=== PATIENT | male | born 1955 | race Caucasian/White ===

== ENCOUNTER 2019-07-08 14:03 | Observation (INO) ==
[2019-07-08] MEDS ORDERED: 0.9 % Sodium Chloride 250 ML IVC ONE (14:16)
[2019-07-08] MEDS ORDERED: Ziprasidone 20 MG in Water for inj. (sterile) 1 ML IM ONE (14:17)
[2019-07-08 15:45] LABS: Basophils % 0.3 %; Eosinophils # 0.1 K/mcL (0.0-0.6); Eosinophils % 1.2 %; Hematocrit 38.8 % (37.5-50.1); Hemoglobin 13.5 g/dL (12.9-16.9); Immature Granulocytes % 0.6 % (0-4); Lymphocytes % 9.7 %; Mean Corpuscular HGB Conc 34.8 g/dL (31.6-35.5); Mean Corpuscular Hemoglobin 34.8 pg (28.0-33.3); Mean Platelet Volume 9.7 fL (9.4-12.4); Monocytes # 0.8 K/mcL (0.0-1.3); Neutrophils # 7.9 K/mcL (1.6-8.9); Platelet Count 184 K/mcL (140-400); Red Blood Count 3.88 M/mcL (4.19-5.50); Red Cell Distribution Width 12.4 % (11.5-14.5); Segmented Neutrophils % 80.2 %; White Blood Count 9.8 K/mcL (4.3-11.1)
[2019-07-08 16:06] LABS: BUN/Creatinine Ratio 12 (6-26); Blood Urea Nitrogen 7 mg/dL (8-23); Calcium 9.7 mg/dL (8.6-10.3); Carbon Dioxide 22 mEq/L (23-29); Chloride 100 mEq/L (98-107); Glucose 100 mg/dL (70-105); Osmolality,Calculated 266 (280-300); Potassium 3.9 mEq/L (3.5-5.1); Sodium 129 mEq/L (136-145); Troponin I < 0.03 ng/mL (< 0.04); eGFR For African Americans > 60 (> 60); eGFR For Non-African Americans > 60 (> 60)
[2019-07-08] MEDS ORDERED: Naloxone 0.4 MG/ML INJ IVP PRN (16:42)
[2019-07-08] MEDS ORDERED: Ringers Solution, Lactated 1,000 ML IVC SCH (16:45)
[2019-07-08 17:21] LABS: Bilirubin,Urine Negative (Negative); Blood,Urine Negative (Negative); Clarity,Urine Clear (Clear); Color,Urine Yellow (Yellow); Glucose,Urine (UA) Normal (Normal); Ketones,Urine Trace mg/dL (Negative); Leukocyte Esterase,Urine Small (Negative); Nitrite,Urine Negative (Negative); Protein,Urine Trace mg/dL (Neg-Trace); Specific Gravity,Urine 1.017 (1.010-1.025); Urobilinogen,Urine Normal (Normal)
[2019-07-08 17:24] LABS: Bacteria,Urine None Seen per hpf (None-Few); Hyaline Casts,Urine None Seen per lpf (None-Few); Squamous Epithelial Cell,Urine Moderate per lpf (None-Few)
[2019-07-08 17:32] LABS: Albumin 4.3 g/dL (3.5-5.7); Albumin/Globulin Ratio 1.7 (1.1-2.2); Bilirubin,Direct 0.3 mg/dL (0.0-0.2); Bilirubin,Indirect 0.5 mg/dL (0.0-1.0); Bilirubin,Total 0.8 mg/dL (0.3-1.0); Globulin 2.5 g/dL (2.4-3.5); Total Protein 6.8 g/dL (6.4-8.9)
[2019-07-08 17:36] LABS: Amphetamine Screen,Urine Negative ng/mL (Cutoff=1000); Barbiturate Screen,Urine Negative ng/mL (Cutoff=200); Benzodiazepines Screen,Urine Negative ng/mL (Cutoff=200); Cannabinoid Screen,Urine Positive ng/mL (Cutoff = 50); Cocaine Screen,Urine Negative ng/mL (Cutoff= 300); Opiate Screen,Urine Negative ng/mL (Cutoff=300); Phencyclidine Screen,Urine Negative ng/mL (Cutoff=25)
[2019-07-08 17:44] LABS: Thyroid Stimulating Hormone 1.411 mcIU/mL (0.340-5.600)
[2019-07-08 17:55] LABS: Folate 11.7 ng/mL (3.0-16.0)
[2019-07-08] MEDS ORDERED: *HR* HYDROcodone/Acet 5/325 mg TABLET PO PRN (21:34)
[2019-07-08] MEDS ORDERED: Morphine Sulfate 2 MG/ML SYRINGE IVP PRN (21:35)
[2019-07-09] MEDS ORDERED: *HR* LORazepam 2 MG/ML VIAL IVP PRN ×3 (07:17)
[2019-07-09 07:21] LABS: BUN/Creatinine Ratio 8 (6-26); Blood Urea Nitrogen 5 mg/dL (8-23); Carbon Dioxide 27 mEq/L (23-29); Chloride 103 mEq/L (98-107); Glucose 96 mg/dL (70-105); Osmolality,Calculated 279 (280-300); Potassium 4.3 mEq/L (3.5-5.1); Sodium 136 mEq/L (136-145); eGFR For African Americans > 60 (> 60); eGFR For Non-African Americans > 60 (> 60)
[2019-07-09] MEDS: 0.9 % Sodium Chloride 1,000 ML IVC SCH ×2 (08:07→23:52)
[2019-07-09] MEDS ORDERED: Cyanocobalamin (B-12) 1,000 MCG/ML VIAL IM ONE (09:55)
[2019-07-09] MEDS: Thiamine (B-1) 100 MG TABLET PO SCH (11:22)
[2019-07-09] MEDS ORDERED: Ibuprofen 800 MG TABLET PO PRN (13:08)
[2019-07-09] MEDS ORDERED: Acetaminophen IV 1,000 MG/100 ML INFUS..BTL IVPB PRN (20:05)
[2019-07-09] MEDS ORDERED: Methocarbamol 500 MG TABLET PO PRN (20:06)
[2019-07-10] MEDS ORDERED: Ibuprofen 800 MG TABLET PO PRN (07:06)
[2019-07-10] MEDS ORDERED: Folic Acid 1 MG TABLET PO SCH (09:00)
[2019-07-10] MEDS ORDERED: Cyanocobalamin (B-12) 1,000 MCG TABLET PO SCH (09:00)
[2019-07-10] MEDS: Thiamine (B-1) 100 MG TABLET PO SCH (09:37)
[2019-07-10 12:04] VITALS: BP 168/83
== END 2019-07-10 12:09 | disposition home or self-care (01) ==
LOC: 2ANU 14:03 → EMEROOARM 14:03 → SUATTDRO 19:02 → 2ANU 19:44
PROVIDERS: ADMIT Internal Medicine; ATTEND Internal Medicine

== ENCOUNTER 2020-11-24 16:52 | Inpatient (IN) ==
[2020-11-24] MEDS ORDERED: *HR* LORazepam 2 MG/ML VIAL ONE (16:57)
[2020-11-24] MEDS ORDERED: Haloperidol Lactate 5 MG/ML VIAL IVP ONE (17:02)
[2020-11-24] MEDS ORDERED: *HR* LORazepam 2 MG/ML VIAL IVP ONE ×2 (17:02→18:57)
[2020-11-24 18:21] LABS: Basophils % 0.2 %; Eosinophils # 0.1 K/mcL (0.0-0.6); Eosinophils % 0.5 %; Hematocrit 32.6 % (37.5-50.1); Hemoglobin 11.2 g/dL (12.9-16.9); Immature Granulocytes % 0.7 % (0-4); Lymphocytes # 0.8 K/mcL (0.6-4.6); Lymphocytes % 8.4 %; Mean Corpuscular HGB Conc 34.4 g/dL (31.6-35.5); Mean Corpuscular Hemoglobin 33.5 pg (28.0-33.3); Mean Corpuscular Volume 97.6 fL (83.0-100.0); Mean Platelet Volume 9.2 fL (9.4-12.4); Monocytes # 0.7 K/mcL (0.0-1.3); Neutrophils # 7.9 K/mcL (1.6-8.9); Platelet Count 244 K/mcL (140-400); Red Blood Count 3.34 M/mcL (4.19-5.50); Red Cell Distribution Width 12.6 % (11.5-14.5); Segmented Neutrophils % 83.2 %; White Blood Count 9.5 K/mcL (4.3-11.1)
[2020-11-24 18:43] LABS: Alanine Aminotransferase 18 Units/L (7-52); Albumin 3.8 g/dL (3.5-5.7); Albumin/Globulin Ratio 1.4 (1.1-2.2); Alkaline Phosphatase 73 Units/L (34-104); Aspartate Amino Transferase 27 Units/L (13-39); BUN/Creatinine Ratio 10 (6-26); Bilirubin,Direct 0.2 mg/dL (0.0-0.2); Bilirubin,Indirect 0.5 mg/dL (0.0-1.0); Bilirubin,Total 0.7 mg/dL (0.3-1.0); Blood Urea Nitrogen 7 mg/dL (8-23); Calcium 9.6 mg/dL (8.6-10.3); Carbon Dioxide 22 mEq/L (23-29); Chloride 96 mEq/L (98-107); Ethanol < 10 mg/dL (Less than 10); Globulin 2.7 g/dL (2.4-3.5); Glucose 99 mg/dL (70-105); Lipase 9 Units/L (11-82); Magnesium 1.5 mg/dL (1.6-2.6); Osmolality,Calculated 262 (280-300); Phosphorous 2.1 mg/dL (2.7-4.5); Potassium 4.6 mEq/L (3.5-5.1); Sodium 127 mEq/L (136-145); Total Protein 6.5 g/dL (6.4-8.9); Troponin I < 0.03 ng/mL (< 0.04); eGFR For African Americans > 60 (> 60); eGFR For Non-African Americans > 60 (> 60)
[2020-11-24 19:09] LABS: Amphetamine Screen,Urine Negative ng/mL (Cutoff=1000); Barbiturate Screen,Urine Negative ng/mL (Cutoff=200); Benzodiazepines Screen,Urine Negative ng/mL (Cutoff=200); Cannabinoid Screen,Urine Negative ng/mL (Cutoff = 50); Cocaine Screen,Urine Negative ng/mL (Cutoff= 300); Opiate Screen,Urine Negative ng/mL (Cutoff=300); Phencyclidine Screen,Urine Negative ng/mL (Cutoff=25)
[2020-11-24 19:20] LABS: Acetaminophen < 10 mcg/mL (10-20); Salicylate < 2.5 mg/dL (15.0-30.0)
[2020-11-24] MEDS: 0.9 % Sodium Chloride 1,000 ML IVC SCH ×2 (19:20→20:14)
[2020-11-24 20:46] LABS: Bilirubin,Urine Negative (Negative); Blood,Urine Negative (Negative); Clarity,Urine Clear (Clear); Color,Urine Light-Yellow (Yellow); Glucose,Urine (UA) Normal (Normal); Ketones,Urine Negative (Negative); Leukocyte Esterase,Urine Negative (Negative); Nitrite,Urine Negative (Negative); Protein,Urine Negative (Neg-Trace); Specific Gravity,Urine 1.014 (1.010-1.025); Urobilinogen,Urine Normal (Normal)
[2020-11-24] MEDS ORDERED: *HR* Promethazine 25 MG/ML VIAL IM PRN (21:06)
[2020-11-24] MEDS ORDERED: *HR* OxyCODONE Immed Rel 5 MG TABLET PO PRN (21:06)
[2020-11-24] MEDS ORDERED: *HR* HYDROcodone/Acet 5/325 mg TABLET PO PRN (21:06)
[2020-11-24] MEDS ORDERED: Ondansetron 4 MG/2 ML VIAL IVP PRN (21:06)
[2020-11-24] MEDS ORDERED: Naloxone 0.4 MG/ML INJ IVP PRN (21:06)
[2020-11-24] MEDS ORDERED: *HR* LORazepam 2 MG/ML VIAL IVP PRN (21:15)
[2020-11-24] MEDS: Ringers Solution, Lactated 1,000 ML IVC SCH (21:27)
[2020-11-24] MEDS: *HR* LORazepam 2 MG/ML VIAL IVP PRN ×2 (21:33→23:20)
[2020-11-25] MEDS: *HR* LORazepam 2 MG/ML VIAL IVP PRN ×8 (01:30→23:38)
[2020-11-25] MEDS: Ringers Solution, Lactated 1,000 ML IVC SCH (04:31)
[2020-11-25 06:01] LABS: Basophils % 0.3 %; Eosinophils % 0.3 %; Hematocrit 32.5 % (37.5-50.1); Hemoglobin 11.3 g/dL (12.9-16.9); Immature Granulocytes % 0.4 % (0-4); Lymphocytes # 0.8 K/mcL (0.6-4.6); Lymphocytes % 11.4 %; Mean Corpuscular HGB Conc 34.8 g/dL (31.6-35.5); Mean Corpuscular Hemoglobin 33.8 pg (28.0-33.3); Mean Corpuscular Volume 97.3 fL (83.0-100.0); Mean Platelet Volume 9.8 fL (9.4-12.4); Monocytes # 0.7 K/mcL (0.0-1.3); Monocytes % 9.2 %; Neutrophils # 5.7 K/mcL (1.6-8.9); Platelet Count 235 K/mcL (140-400); Red Blood Count 3.34 M/mcL (4.19-5.50); Red Cell Distribution Width 12.4 % (11.5-14.5); Segmented Neutrophils % 78.4 %; White Blood Count 7.3 K/mcL (4.3-11.1)
[2020-11-25 06:05] LABS: Prothrombin Time 11.3 Seconds (9.4-12.1)
[2020-11-25 06:28] LABS: Alanine Aminotransferase 18 Units/L (7-52); Albumin 3.6 g/dL (3.5-5.7); Albumin/Globulin Ratio 1.4 (1.1-2.2); Alkaline Phosphatase 71 Units/L (34-104); Aspartate Amino Transferase 33 Units/L (13-39); BUN/Creatinine Ratio 10 (6-26); Blood Urea Nitrogen 5 mg/dL (8-23); Calcium 9.1 mg/dL (8.6-10.3); Carbon Dioxide 25 mEq/L (23-29); Chloride 104 mEq/L (98-107); Globulin 2.5 g/dL (2.4-3.5); Glucose 106 mg/dL (70-105); Magnesium 1.7 mg/dL (1.6-2.6); Osmolality,Calculated 278 (280-300); Phosphorous 2.9 mg/dL (2.7-4.5); Potassium 3.7 mEq/L (3.5-5.1); Sodium 135 mEq/L (136-145); Total Protein 6.1 g/dL (6.4-8.9); eGFR For African Americans > 60 (> 60); eGFR For Non-African Americans > 60 (> 60)
[2020-11-25] MEDS ORDERED: Morphine Sulfate 2 MG/ML SYRINGE IVP ONE (09:35)
[2020-11-25] MEDS: Thiamine (B-1) 100 MG, Folic Acid 1 MG, MVI, adult with vitamin K 10 ML in 0.9 % Sodi... IVPB SCH ×2 (09:46→18:15)
[2020-11-25] MEDS: lisinopriL 5 MG TABLET PO SCH (17:12)
[2020-11-26] MEDS: *HR* LORazepam 2 MG/ML VIAL IVP PRN (03:01)
[2020-11-26] MEDS: levETIRAcetam 250 MG TABLET PO SCH ×2 (04:53→17:14)
[2020-11-26] MEDS: lisinopriL 5 MG TABLET PO SCH (09:17)
[2020-11-26 10:20] LABS: Basophils % 0.3 %; Eosinophils # 0.1 K/mcL (0.0-0.6); Eosinophils % 1.1 %; Hematocrit 34.3 % (37.5-50.1); Hemoglobin 11.9 g/dL (12.9-16.9); Immature Granulocytes % 0.5 % (0-4); Lymphocytes # 1.4 K/mcL (0.6-4.6); Lymphocytes % 14.7 %; Mean Corpuscular HGB Conc 34.7 g/dL (31.6-35.5); Mean Platelet Volume 9.5 fL (9.4-12.4); Monocytes % 11.2 %; Neutrophils # 6.7 K/mcL (1.6-8.9); Platelet Count 216 K/mcL (140-400); Red Cell Distribution Width 12.6 % (11.5-14.5); Segmented Neutrophils % 72.2 %; White Blood Count 9.3 K/mcL (4.3-11.1)
[2020-11-26 10:51] LABS: Alanine Aminotransferase 15 Units/L (7-52); Albumin 3.5 g/dL (3.5-5.7); Albumin/Globulin Ratio 1.3 (1.1-2.2); Alkaline Phosphatase 71 Units/L (34-104); Aspartate Amino Transferase 26 Units/L (13-39); Bilirubin,Total 1.1 mg/dL (0.3-1.0); Blood Urea Nitrogen 5 mg/dL (8-23); Calcium 9.1 mg/dL (8.6-10.3); Carbon Dioxide 25 mEq/L (23-29); Chloride 101 mEq/L (98-107); Globulin 2.7 g/dL (2.4-3.5); Glucose 104 mg/dL (70-105); Osmolality,Calculated 270 (280-300); Potassium 3.5 mEq/L (3.5-5.1); Sodium 131 mEq/L (136-145); Total Protein 6.2 g/dL (6.4-8.9)
[2020-11-26 11:52] LABS: BUN/Creatinine Ratio 11 (6-26); eGFR For African Americans > 60 (> 60); eGFR For Non-African Americans > 60 (> 60)
[2020-11-26] MEDS: Thiamine (B-1) 100 MG TABLET PO SCH (17:14)
[2020-11-26] MEDS: Multivit/Ca/Min/Fe/FA 1 TAB TABLET PO SCH (17:14)
[2020-11-26] MEDS: Folic Acid 1 MG TABLET PO SCH (17:14)
[2020-11-27] MEDS: levETIRAcetam 250 MG TABLET PO SCH ×2 (05:20→17:43)
[2020-11-27 07:16] LABS: Basophils % 0.2 %; Eosinophils # 0.1 K/mcL (0.0-0.6); Eosinophils % 0.5 %; Hematocrit 33.5 % (37.5-50.1); Hemoglobin 11.4 g/dL (12.9-16.9); Immature Granulocytes % 0.5 % (0-4); Lymphocytes # 1.1 K/mcL (0.6-4.6); Lymphocytes % 10.8 %; Mean Corpuscular Hemoglobin 33.5 pg (28.0-33.3); Mean Corpuscular Volume 98.5 fL (83.0-100.0); Monocytes # 1.2 K/mcL (0.0-1.3); Monocytes % 11.9 %; Neutrophils # 7.7 K/mcL (1.6-8.9); Platelet Count 220 K/mcL (140-400); Red Cell Distribution Width 12.3 % (11.5-14.5); Segmented Neutrophils % 76.1 %; White Blood Count 10.1 K/mcL (4.3-11.1)
[2020-11-27 07:38] LABS: BUN/Creatinine Ratio 17 (6-26); Blood Urea Nitrogen 8 mg/dL (8-23); Calcium 10.1 mg/dL (8.6-10.3); Carbon Dioxide 25 mEq/L (23-29); Chloride 101 mEq/L (98-107); Glucose 115 mg/dL (70-105); Osmolality,Calculated 275 (280-300); Potassium 3.7 mEq/L (3.5-5.1); Sodium 133 mEq/L (136-145); eGFR For African Americans > 60 (> 60); eGFR For Non-African Americans > 60 (> 60)
[2020-11-27] MEDS: lisinopriL 5 MG TABLET PO SCH (08:39)
[2020-11-27] MEDS: Thiamine (B-1) 100 MG TABLET PO SCH (08:40)
[2020-11-27] MEDS: Folic Acid 1 MG TABLET PO SCH (08:40)
[2020-11-27] MEDS: Multivit/Ca/Min/Fe/FA 1 TAB TABLET PO SCH (08:40)
[2020-11-28] MEDS: Acetaminophen 325 MG TABLET PO PRN (03:55)
[2020-11-28] MEDS: levETIRAcetam 250 MG TABLET PO SCH ×2 (05:55→18:17)
[2020-11-28 06:36] LABS: Basophils % 0.3 %; Eosinophils # 0.1 K/mcL (0.0-0.6); Eosinophils % 1.8 %; Hematocrit 28.7 % (37.5-50.1); Immature Granulocytes % 0.4 % (0-4); Lymphocytes # 1.4 K/mcL (0.6-4.6); Lymphocytes % 17.7 %; Mean Corpuscular HGB Conc 34.8 g/dL (31.6-35.5); Mean Corpuscular Hemoglobin 34.2 pg (28.0-33.3); Mean Corpuscular Volume 98.3 fL (83.0-100.0); Mean Platelet Volume 10.1 fL (9.4-12.4); Monocytes # 1.1 K/mcL (0.0-1.3); Monocytes % 13.7 %; Platelet Count 218 K/mcL (140-400); Red Blood Count 2.92 M/mcL (4.19-5.50); Red Cell Distribution Width 11.9 % (11.5-14.5); Segmented Neutrophils % 66.1 %; White Blood Count 7.9 K/mcL (4.3-11.1)
[2020-11-28 06:42] LABS: Neutrophils # 5.2 K/mcL (1.6-8.9)
[2020-11-28 07:00] LABS: BUN/Creatinine Ratio 20 (6-26); Blood Urea Nitrogen 10 mg/dL (8-23); Calcium 9.7 mg/dL (8.6-10.3); Carbon Dioxide 26 mEq/L (23-29); Chloride 102 mEq/L (98-107); Glucose 108 mg/dL (70-105); Osmolality,Calculated 274 (280-300); Potassium 3.7 mEq/L (3.5-5.1); Sodium 132 mEq/L (136-145); eGFR For African Americans > 60 (> 60); eGFR For Non-African Americans > 60 (> 60)
[2020-11-28 07:11] LABS: Hypochromasia Present (Not Present); Platelet Estimate Normal (Normal); Reactive Lymphocytes Present (Not Present)
[2020-11-28] MEDS: Multivit/Ca/Min/Fe/FA 1 TAB TABLET PO SCH (09:28)
[2020-11-28] MEDS: Thiamine (B-1) 100 MG TABLET PO SCH (09:28)
[2020-11-28] MEDS: lisinopriL 5 MG TABLET PO SCH (09:28)
[2020-11-28] MEDS: Folic Acid 1 MG TABLET PO SCH (09:29)
[2020-11-29] MEDS: levETIRAcetam 250 MG TABLET PO SCH ×2 (10:59→18:23)
[2020-11-29] MEDS: Thiamine (B-1) 100 MG TABLET PO SCH (11:04)
[2020-11-29] MEDS: Multivit/Ca/Min/Fe/FA 1 TAB TABLET PO SCH (11:04)
[2020-11-29] MEDS: lisinopriL 5 MG TABLET PO SCH (11:04)
[2020-11-29] MEDS: Folic Acid 1 MG TABLET PO SCH (11:05)
[2020-11-29] MEDS: Melatonin 3 MG TABLET PO PRN (22:05)
[2020-11-29] MEDS: Acetaminophen 325 MG TABLET PO PRN (22:05)
[2020-11-30] MEDS: levETIRAcetam 250 MG TABLET PO SCH ×2 (05:01→17:02)
[2020-11-30] MEDS: Multivit/Ca/Min/Fe/FA 1 TAB TABLET PO SCH (08:24)
[2020-11-30] MEDS: Folic Acid 1 MG TABLET PO SCH (08:25)
[2020-11-30] MEDS: lisinopriL 5 MG TABLET PO SCH (08:25)
[2020-11-30] MEDS: Thiamine (B-1) 100 MG TABLET PO SCH (08:25)
[2020-11-30] MEDS: Melatonin 3 MG TABLET PO PRN (20:53)
[2020-11-30] MEDS: Acetaminophen 325 MG TABLET PO PRN (20:54)
[2020-12-01 04:52] LABS: Basophils % 0.3 %; Eosinophils # 0.3 K/mcL (0.0-0.6); Eosinophils % 3.2 %; Hematocrit 28.2 % (37.5-50.1); Hemoglobin 9.3 g/dL (12.9-16.9); Immature Granulocytes % 0.4 % (0-4); Lymphocytes # 1.9 K/mcL (0.6-4.6); Lymphocytes % 19.1 %; Mean Corpuscular Hemoglobin 33.2 pg (28.0-33.3); Mean Corpuscular Volume 100.7 fL (83.0-100.0); Mean Platelet Volume 9.9 fL (9.4-12.4); Monocytes # 1.1 K/mcL (0.0-1.3); Monocytes % 10.5 %; Platelet Count 307 K/mcL (140-400); Red Cell Distribution Width 11.6 % (11.5-14.5); Segmented Neutrophils % 66.5 %
[2020-12-01] MEDS: levETIRAcetam 250 MG TABLET PO SCH ×2 (05:05→17:32)
[2020-12-01 05:10] LABS: Neutrophils # 6.7 K/mcL (1.6-8.9)
[2020-12-01 05:12] LABS: BUN/Creatinine Ratio 21 (6-26); Blood Urea Nitrogen 12 mg/dL (8-23); Carbon Dioxide 30 mEq/L (23-29); Chloride 101 mEq/L (98-107); Glucose 103 mg/dL (70-105); Osmolality,Calculated 278 (280-300); Potassium 3.3 mEq/L (3.5-5.1); Sodium 134 mEq/L (136-145); eGFR For African Americans > 60 (> 60); eGFR For Non-African Americans > 60 (> 60)
[2020-12-01 05:38] LABS: Platelet Estimate Normal (Normal)
[2020-12-01] MEDS ORDERED: *HR* Metoprolol 5 MG/5 ML VIAL IVP ONE (08:47)
[2020-12-01] MEDS: Multivit/Ca/Min/Fe/FA 1 TAB TABLET PO SCH (09:07)
[2020-12-01] MEDS: lisinopriL 5 MG TABLET PO SCH (09:08)
[2020-12-01] MEDS: Thiamine (B-1) 100 MG TABLET PO SCH (09:08)
[2020-12-01] MEDS: Folic Acid 1 MG TABLET PO SCH (09:08)
[2020-12-01 19:01] LABS: Adenovirus Not Detected (Not Detect); Bordetella Pertussis Not Detected (Not Detect); Chlamydophila pneumoniae Not Detected (Not Detect); Coronavirus 229E Not Detected (Not Detect); Coronavirus HKU1 Not Detected (Not Detect); Coronavirus NL63 Not Detected (Not Detect); Coronavirus OC43 Not Detected (Not Detect); Human Metapneumovirus Not Detected (Not Detect); Human Rhinovirus/Enterovirus Not Detected (Not Detect); Influenza A Subtype 2009 H1 Not Detected (Not Detect); Influenza B Not Detected (Not Detect); Mycoplasma pneumoniae Not Detected (Not Detect); Parainfluenza Virus 1 Not Detected (Not Detect); Parainfluenza Virus 2 Not Detected (Not Detect); Parainfluenza Virus 3 Not Detected (Not Detect); Parainfluenza Virus 4 Not Detected (Not Detect); Respiratory Syncytial Virus Not Detected (Not Detect); SARS-CoV-2 Not Detected (Not Detect)
[2020-12-01 19:24] VITALS: BP 140/89
== END 2020-12-01 21:09 | DRG 896 ==
LOC: EMEROOARM 16:52 → 2NNU 16:52 → SUATTDRO 20:36 → 2NNU 21:10 → 2ANU 11-28 09:06
PROVIDERS: ADMIT Family Medicine; ATTEND Family Medicine

== ENCOUNTER 2021-04-26 16:00 | Inpatient (IN) ==
[2021-04-26] MEDS ORDERED: *HR* LORazepam 2 MG/ML VIAL IVP ONE (17:33)
[2021-04-26 17:58] LABS: VBG HCO3 31 mEq/L (21-27); VBG PCO2 51 mmHg (41-51); VBG PH 7.39 pH Units (7.32-7.42); VBG PO2 45 mmHg (25-50)
[2021-04-26 17:58] LABS: Basophils % 0.4 %; Eosinophils # 0.2 K/mcL (0.0-0.6); Eosinophils % 2.1 %; Hematocrit 37.3 % (37.5-50.1); Hemoglobin 12.6 g/dL (12.9-16.9); Immature Granulocytes % 0.3 % (0-4); Lymphocytes # 1.6 K/mcL (0.6-4.6); Lymphocytes % 21.5 %; Mean Corpuscular HGB Conc 33.8 g/dL (31.6-35.5); Mean Corpuscular Hemoglobin 33.1 pg (28.0-33.3); Mean Corpuscular Volume 97.9 fL (83.0-100.0); Mean Platelet Volume 10.8 fL (9.4-12.4); Monocytes # 0.7 K/mcL (0.0-1.3); Platelet Count 153 K/mcL (140-400); Red Blood Count 3.81 M/mcL (4.19-5.50); Red Cell Distribution Width 13.9 % (11.5-14.5); Segmented Neutrophils % 66.7 %; White Blood Count 7.5 K/mcL (4.3-11.1)
[2021-04-26 18:02] LABS: Prothrombin Time 10.8 Seconds (9.4-12.1)
[2021-04-26 18:10] LABS: Bilirubin,Urine Negative (Negative); Blood,Urine Negative (Negative); Clarity,Urine Clear (Clear); Color,Urine Yellow (Yellow); Glucose,Urine (UA) Normal (Normal); Ketones,Urine Negative (Negative); Leukocyte Esterase,Urine Negative (Negative); Nitrite,Urine Negative (Negative); Protein,Urine Negative (Neg-Trace); Specific Gravity,Urine 1.007 (1.010-1.025); Urobilinogen,Urine Normal (Normal)
[2021-04-26 18:44] LABS: Alanine Aminotransferase 10 Units/L (7-52); Albumin 3.9 g/dL (3.5-5.7); Albumin/Globulin Ratio 1.3 (1.1-2.2); Alkaline Phosphatase 67 Units/L (34-104); Aspartate Amino Transferase 26 Units/L (13-39); BUN/Creatinine Ratio 13 (6-26); Bilirubin,Direct 0.2 mg/dL (0.0-0.2); Bilirubin,Indirect 0.8 mg/dL (0.0-1.0); Blood Urea Nitrogen 10 mg/dL (8-23); Carbon Dioxide 32 mEq/L (23-29); Chloride 97 mEq/L (98-107); Globulin 2.9 g/dL (2.4-3.5); Glucose 104 mg/dL (70-105); Magnesium 1.6 mg/dL (1.6-2.6); Osmolality,Calculated 279 (280-300); Phosphorous 1.7 mg/dL (2.7-4.5); Potassium 3.1 mEq/L (3.5-5.1); Sodium 135 mEq/L (136-145); Thyroid Stimulating Hormone 0.835 mcIU/mL (0.340-5.600); Total Protein 6.8 g/dL (6.4-8.9); eGFR For African Americans > 60 (> 60); eGFR For Non-African Americans > 60 (> 60)
[2021-04-26 18:47] LABS: Calcium 15.3 mg/dL (8.6-10.3)
[2021-04-26 18:48] LABS: Troponin I 0.04 ng/mL (< 0.04)
[2021-04-26] MEDS ORDERED: 0.9 % Sodium Chloride 1,000 ML IVC ONE (18:52)
[2021-04-26] MEDS ORDERED: Calcitonin-Salmon, Synthetic 400 UNIT/2 ML VIAL SQ ONE (18:52)
[2021-04-26] MEDS ORDERED: SODIUM CHLORIDE 0.9% IVPB ONE (19:02)
[2021-04-26] MEDS ORDERED: POTASSIUM PHOSPHATE IVPB ONE (19:02)
[2021-04-26] MEDS ORDERED: Ringers Solution, Lactated 1,000 ML IVC ONE (19:15)
[2021-04-26 19:27] LABS: Influenza A PCR Negative (Negative); Influenza B PCR Negative (Negative); Resp. Syncytial Virus PCR Negative (Negative); SARS-CoV-2 by PCR (In House) Negative (Negative)
[2021-04-26] MEDS ORDERED: Potassium Phosphate 44 MEQ in 0.9 % Sodium Chloride 250 ML IVPB ONE (20:00)
[2021-04-26 20:24] LABS: VBG Ionized Calcium 1.92 mmol/L (1.15-1.35)
[2021-04-26] MEDS ORDERED: *HR* LORazepam 2 MG/ML VIAL IVP PRN ×2 (21:48)
[2021-04-26] MEDS ORDERED: Naloxone 0.4 MG/ML INJ IVP PRN (21:52)
[2021-04-26] MEDS: *HR* LORazepam 2 MG/ML VIAL IVP PRN (22:15)
[2021-04-26] MEDS: niCARdipine 20 MG/200 ML MLS IVC SCH (23:11)
[2021-04-27] MEDS ORDERED: 0.9 % Sodium Chloride 1,000 ML IVC SCH ×2 (00:30→11:00)
[2021-04-27 00:31] LABS: Hematocrit 38.4 % (37.5-50.1); Hemoglobin 13.1 g/dL (12.9-16.9); Mean Corpuscular HGB Conc 34.1 g/dL (31.6-35.5); Mean Corpuscular Hemoglobin 33.2 pg (28.0-33.3); Mean Corpuscular Volume 97.2 fL (83.0-100.0); Mean Platelet Volume 10.6 fL (9.4-12.4); Platelet Count 152 K/mcL (140-400); Red Blood Count 3.95 M/mcL (4.19-5.50); Red Cell Distribution Width 13.6 % (11.5-14.5); White Blood Count 9.8 K/mcL (4.3-11.1)
[2021-04-27 00:33] LABS: VBG Ionized Calcium 1.69 mmol/L (1.15-1.35)
[2021-04-27 00:55] LABS: BUN/Creatinine Ratio 11 (6-26); Blood Urea Nitrogen 8 mg/dL (8-23); Calcium 13.4 mg/dL (8.6-10.3); Carbon Dioxide 27 mEq/L (23-29); Chloride 102 mEq/L (98-107); Glucose 116 mg/dL (70-105); Osmolality,Calculated 285 (280-300); Potassium 3.1 mEq/L (3.5-5.1); Sodium 138 mEq/L (136-145); eGFR For African Americans > 60 (> 60); eGFR For Non-African Americans > 60 (> 60)
[2021-04-27] MEDS ORDERED: Calcitonin-Salmon, Synthetic 400 UNIT/2 ML VIAL SQ ONE ×2 (01:00→14:00)
[2021-04-27] MEDS ORDERED: Zoledronic Acid (Zometa) 4 MG in 0.9 % Sodium Chloride 100 ML IV ONE (01:30)
[2021-04-27] MEDS: niCARdipine 20 MG/200 ML MLS IVC SCH ×5 (02:39→21:42)
[2021-04-27] MEDS: levETIRAcetam 250 MG in 0.9 % Sodium Chloride 100 ML IVPB SCH ×2 (02:39→17:45)
[2021-04-27] MEDS ORDERED: Potassium Phosphate 44 MEQ in 0.9 % Sodium Chloride 250 ML IVPB ONE ×2 (04:00→10:08)
[2021-04-27 05:03] LABS: BUN/Creatinine Ratio 10 (6-26); Blood Urea Nitrogen 8 mg/dL (8-23); Calcium 12.7 mg/dL (8.6-10.3); Carbon Dioxide 29 mEq/L (23-29); Chloride 104 mEq/L (98-107); Glucose 118 mg/dL (70-105); Osmolality,Calculated 287 (280-300); Potassium 3.1 mEq/L (3.5-5.1); Sodium 139 mEq/L (136-145); eGFR For African Americans > 60 (> 60); eGFR For Non-African Americans > 60 (> 60)
[2021-04-27] MEDS ORDERED: levETIRAcetam 250 MG TABLET PO SCH (06:00)
[2021-04-27] MEDS: *HR* Heparin 5,000 UNIT/ML VIAL SQ SCH ×3 (06:29→21:37)
[2021-04-27 06:37] LABS: Folate > 22.3 ng/mL (3.0-16.0); Vitamin B12 820 pg/mL (250-1100)
[2021-04-27 09:14] LABS: VBG Ionized Calcium 1.68 mmol/L (1.15-1.35)
[2021-04-27 09:28] LABS: BUN/Creatinine Ratio 10 (6-26); Blood Urea Nitrogen 9 mg/dL (8-23); Calcium 12.4 mg/dL (8.6-10.3); Carbon Dioxide 29 mEq/L (23-29); Chloride 105 mEq/L (98-107); Glucose 109 mg/dL (70-105); Osmolality,Calculated 289 (280-300); Potassium 3.3 mEq/L (3.5-5.1); Sodium 140 mEq/L (136-145); eGFR For African Americans > 60 (> 60); eGFR For Non-African Americans > 60 (> 60)
[2021-04-27 09:45] LABS: ABG Base Excess 4 mEq/L (-2 to 3); ABG HCO3 30 mEq/L (21-27); ABG Oxygen Saturation 91 % (95-98); ABG PCO2 45 mmHg (35-45); ABG PH 7.43 pH Units (7.32-7.45); ABG PO2 60 mmHg (85-104); ABG TCO2 31 mEq/L (20-26)
[2021-04-27] MEDS: *HR* LORazepam 2 MG/ML VIAL IVP PRN ×3 (10:59→22:08)
[2021-04-27 11:34] LABS: Amphetamine Screen,Urine Negative ng/mL (Cutoff=1000); Barbiturate Screen,Urine Negative ng/mL (Cutoff=200); Benzodiazepines Screen,Urine Negative ng/mL (Cutoff=200); Cannabinoid Screen,Urine Negative ng/mL (Cutoff = 50); Cocaine Screen,Urine Negative ng/mL (Cutoff= 300); Opiate Screen,Urine Negative ng/mL (Cutoff=300); Phencyclidine Screen,Urine Negative ng/mL (Cutoff=25)
[2021-04-27 14:20] LABS: VBG Ionized Calcium 1.47 mmol/L (1.15-1.35)
[2021-04-27 14:28] LABS: VBG Ionized Calcium 1.48 mmol/L (1.15-1.35)
[2021-04-27 14:50] LABS: BUN/Creatinine Ratio 11 (6-26); Blood Urea Nitrogen 12 mg/dL (8-23); Calcium 11.9 mg/dL (8.6-10.3); Carbon Dioxide 28 mEq/L (23-29); Chloride 106 mEq/L (98-107); Glucose 102 mg/dL (70-105); Osmolality,Calculated 294 (280-300); Potassium 3.3 mEq/L (3.5-5.1); Sodium 142 mEq/L (136-145); eGFR For African Americans > 60 (> 60); eGFR For Non-African Americans > 60 (> 60)
[2021-04-27] MEDS ORDERED: Acetaminophen IV 500 MG/50 ML BAG IVPB ONE (16:37)
[2021-04-27] MEDS: Thiamine (B-1) 100 MG, Folic Acid 1 MG, MVI, adult with vitamin K 10 ML in 0.9 % Sodi... IVPB SCH (17:54)
[2021-04-27 20:13] LABS: BUN/Creatinine Ratio 10 (6-26); Blood Urea Nitrogen 14 mg/dL (8-23); Calcium 10.9 mg/dL (8.6-10.3); Carbon Dioxide 26 mEq/L (23-29); Chloride 107 mEq/L (98-107); Glucose 111 mg/dL (70-105); Osmolality,Calculated 295 (280-300); Potassium 3.4 mEq/L (3.5-5.1); Sodium 142 mEq/L (136-145); eGFR For African Americans > 60 (> 60); eGFR For Non-African Americans 50 (> 60)
[2021-04-27] MEDS: Piperacillin/Tazobactam 3.375 GM in 0.9 % Sodium Chloride Mini Bag 100 ML IVPB SCH (23:34)
[2021-04-28] MEDS ORDERED: *HR* Midazolam HCl 5 MG/5 ML VIAL IVP ONE (00:55)
[2021-04-28] MEDS ORDERED: *HR* Propofol 200 MG/20 ML VIAL IVP ONE (00:55)
[2021-04-28 01:47] LABS: VBG Ionized Calcium 1.37 mmol/L (1.15-1.35)
[2021-04-28 01:47] LABS: Basophils % 0.2 %; Hematocrit 35.4 % (37.5-50.1); Hemoglobin 11.7 g/dL (12.9-16.9); Immature Granulocytes % 0.4 % (0-4); Lymphocytes % 8.1 %; Mean Corpuscular HGB Conc 33.1 g/dL (31.6-35.5); Mean Corpuscular Hemoglobin 32.8 pg (28.0-33.3); Mean Corpuscular Volume 99.2 fL (83.0-100.0); Mean Platelet Volume 10.9 fL (9.4-12.4); Monocytes # 1.2 K/mcL (0.0-1.3); Monocytes % 9.4 %; Neutrophils # 10.1 K/mcL (1.6-8.9); Platelet Count 150 K/mcL (140-400); Red Blood Count 3.57 M/mcL (4.19-5.50); Red Cell Distribution Width 14.5 % (11.5-14.5); Segmented Neutrophils % 81.9 %; White Blood Count 12.3 K/mcL (4.3-11.1)
[2021-04-28 02:00] LABS: Calcium 10.1 mg/dL (8.6-10.3); Potassium 3.3 mEq/L (3.5-5.1)
[2021-04-28] MEDS: *HR* LORazepam 2 MG/ML VIAL IVP PRN ×2 (02:09→09:22)
[2021-04-28 05:59] LABS: VBG Ionized Calcium 0.95 mmol/L (1.15-1.35)
[2021-04-28 06:16] LABS: Magnesium 1.4 mg/dL (1.6-2.6); Phosphorous 3.5 mg/dL (2.7-4.5); Potassium 3.3 mEq/L (3.5-5.1)
[2021-04-28] MEDS ORDERED: Potassium Phosphate 44 MEQ in 0.9 % Sodium Chloride 250 ML IVPB ONE (06:37)
[2021-04-28] MEDS: levETIRAcetam 250 MG in 0.9 % Sodium Chloride 100 ML IVPB SCH ×2 (06:40→16:53)
[2021-04-28] MEDS: Piperacillin/Tazobactam 3.375 GM in 0.9 % Sodium Chloride Mini Bag 100 ML IVPB SCH ×3 (06:41→20:37)
[2021-04-28] MEDS: Ringers Solution, Lactated 1,000 ML IVC SCH ×2 (08:00→22:18)
[2021-04-28] MEDS ORDERED: 0.9 % Sodium Chloride 1,000 ML IVC SCH (08:30)
[2021-04-28] MEDS: *HR* Heparin 5,000 UNIT/ML VIAL SQ SCH ×3 (10:50→21:05)
[2021-04-28] MEDS ORDERED: *HR* LORazepam 2 MG/ML VIAL IVP STA (11:43)
[2021-04-28] MEDS ORDERED: *HR* LORazepam 2 MG/ML VIAL IM ONE (11:43)
[2021-04-28] MEDS ORDERED: levETIRAcetam 1,000 MG in 0.9 % Sodium Chloride 100 ML IVPB ONE (11:44)
[2021-04-28] MEDS ORDERED: *HR* LORazepam 2 MG/ML VIAL ONE (11:48)
[2021-04-28] MEDS ORDERED: *HR* LORazepam 2 MG/ML VIAL IVP ONE (12:33)
[2021-04-28] MEDS ORDERED: Fosphenytoin 1,000 MG.PE in 0.9 % Sodium Chloride 50 ML IVPB ONE (12:43)
[2021-04-28] MEDS ORDERED: diazePAM 10 MG/2 ML SYRINGE IVP ONE (12:52)
[2021-04-28] MEDS ORDERED: *HR* FentaNYL (PF) 100 MCG/2 ML VIAL ONE (14:34)
[2021-04-28] MEDS ORDERED: *HR* FentaNYL (PF) 100 MCG/2 ML VIAL IVP ONE (14:42)
[2021-04-28] MEDS: Midazolam HCl 50 MG/100 ML IV.SOLN IVC SCH (14:55)
[2021-04-28] MEDS: FentaNYL (PF) 1,000 MCG/100 ML IV.SOLN IVC SCH ×2 (14:55→23:29)
[2021-04-28] MEDS ORDERED: Acyclovir 700 MG in D5% in Water 250 ML IVPB SCH (15:00)
[2021-04-28] MEDS: niCARdipine 20 MG/200 ML MLS IVC SCH ×2 (15:17→15:18)
[2021-04-28] MEDS ORDERED: Artificial Tears SOLN 15 ML BOTTLE BOTH EYES PRN (16:13)
[2021-04-28] MEDS ORDERED: Pantoprazole 40 MG VIAL IVP SCH (16:15)
[2021-04-28 16:30] LABS: ABG Base Excess 0 mEq/L (-2 to 3); ABG HCO3 25 mEq/L (21-27); ABG Oxygen Saturation 95 % (95-98); ABG PCO2 38 mmHg (35-45); ABG PH 7.42 pH Units (7.32-7.45); ABG PO2 73 mmHg (85-104); ABG TCO2 26 mEq/L (20-26); Blood Gas VT 550 cc
[2021-04-28] MEDS: Thiamine (B-1) 100 MG, Folic Acid 1 MG, MVI, adult with vitamin K 10 ML in 0.9 % Sodi... IVPB SCH (16:53)
[2021-04-28] MEDS ORDERED: *HR* Atropine Sulfate 1 MG/10 ML SYRINGE ONE (19:49)
[2021-04-28] MEDS: Artificial Tears SOLN 15 ML BOTTLE BOTH EYES SCH ×2 (20:36→23:30)
[2021-04-28 20:48] LABS: Magnesium 2.4 mg/dL (1.6-2.6); Potassium 3.5 mEq/L (3.5-5.1)
[2021-04-28] MEDS ORDERED: Chlorhexidine Rinse 15 ML MOUTHWASH MM SCH (21:00)
[2021-04-28 21:22] VITALS: O2SAT 99
[2021-04-29 00:06] VITALS: BP 88/58
[2021-04-29 00:11] VITALS: PULSE 53
[2021-04-29] MEDS: Midazolam HCl 50 MG/100 ML IV.SOLN IVC SCH (00:15)
[2021-04-29 00:16] VITALS: TEMP 97.5
== END 2021-04-29 00:56 | disposition short-term general hospital (02) | DRG 640 ==
LOC: EMEROOARM 16:00 → 2NENU 16:00 → 2NNU 23:49 → SUATTDRO 04-27 04:16 → ICNU 04-28 14:22
PROVIDERS: ADMIT Family Medicine; ATTEND Internal Medicine